=== PATIENT | female | born 1930 | race Caucasian/White ===

== ENCOUNTER 2017-03-13 12:12 | Emergency (ER) | payer OTHER ==
[~2017-03-13] VITALS: Ht 165.1 cm; Wt 95.5 kg
[~2017-03-13 12:12] MED LIST: AMLO5TAB2 PO; ASPI-630 PO; BUME0.5T PO; CARV6.252 PO; CLOP75TA PO; ERGO500027 PO; GLIP5TAB10 PO; HYDR-2867 PO; LEVO100T5 PO; LOSA25TA4 PO; PANT40TA5 PO; PARI2CAP PO; PRAV40TA2 PO; SUCR1TAB PO; VITA1TAB19 PO
[2017-03-13 12:30] LABS: BASO # 0.1 x10^3/uL (0.0-0.2); BASO % 1 % (0-3); EOS % 2 % (0-3); HEMOGLOBIN 10.5 g/dL (12.0-15.5); LYMPH # 0.6 x10^3/uL (1.0-4.8); LYMPH % 8 % (24-48); MEAN CORPUSCULAR HEMOGLOBIN 31 pg (25-35); MEAN CORPUSCULAR HGB CONC 33 g/dL (31-37); MEAN CORPUSCULAR VOLUME 94 fL (79-100); MONO % 9 % (0-9); NEUT % 81 % (31-73); PLATELET COUNT 249 x10^3/uL (140-400); RED BLOOD COUNT 3.42 x10^6/uL (3.50-5.40); RED CELL DISTRIBUTION WIDTH 15.9 % (11.5-14.5); WHITE BLOOD COUNT 7.2 x10^3/uL (4.0-11.0)
--- NOTE | 2017-03-13 12:40 | EKG ---
[facility] [address] [place] [address] Test Date: 2017-03-13 Test Time: 12:20:10 Pat Name: MINA ALDRIDGE Department: Room: Gender: F [employer]: : [id number] Requested By: JESSE HENRIQUEZ Order Number: [id number] Reading MD: Measurements Intervals [place] Rate: 83 P: MT: QRS: 15 QRSD: 78 T: 77 QT: 358 QTc: 421 Interpretive Statements ATRIAL FIBRILLATION QRS(T) CONTOUR ABNORMALITY CONSISTENT WITH ANTEROSEPTAL INFARCT AGE UNDETERMINED RI6.01 Unconfirmed report No previous ECG available for comparison
[2017-03-13 12:45] LABS: CALCIUM 8.9 mg/dL (8.5-10.1); CREATININE 2.9 mg/dL (0.6-1.0); GFR 15.3; INR 1.2 (0.8-1.1); POTASSIUM 3.9 mmol/L (3.5-5.1); PROTHROMBIN TIME PATIENT 14.2 SEC (11.7-14.0)
[2017-03-13 12:47] LABS: ALBUMIN 2.9 g/dL (3.4-5.0); DIRECT BILIRUBIN 0.3 mg/dL (0.0-0.2); TOTAL BILIRUBIN 0.6 mg/dL (0.2-1.0); TOTAL PROTEIN 6.7 g/dL (6.4-8.2)
[2017-03-13] MEDS ORDERED: ALTEPLASE IV SCH (13:00)
[2017-03-13] MEDS ORDERED: ALTEPLASE 0 MG IV ONE (13:00)
[2017-03-13] MEDS ORDERED: ALTEPLASE IV ONE (13:00)
[2017-03-13] MEDS ORDERED: LABETALOL 20 MG/4 ML DISP.SYRIN. IV PRN (13:00)
[2017-03-13] MEDS ORDERED: ALTEPLASE 0 MG IV SCH (13:00)
[2017-03-13] MEDS ORDERED: IV NORMAL SALINE 50ML 50 ML IV ONE ×2 (13:00)
--- NOTE | 2017-03-13 13:01 | RAD ---
CT head Indication: Altered mental status, found unresponsive Technique: CT head without IV contrast Comparison: None Findings: Limited study due to motion artifact especially in the vertex. Curvilinear high attenuation is seen along the inner table of the right parietal bone. Confluent low-attenuation is in the bilateral centrum semiovale and periventricular white matter. Mild diffuse cerebral atrophy with ex vacuo dilation of the ventricles. Atherosclerotic disease of the bilateral cavernous carotid arteries. No midline shift. No calvarial fractures. Visualized paranasal sinuses and mastoid air cells are clear. No focal loss of [employer]. Impression: Suboptimal evaluation due to motion artifact. 1. Confluent low-attenuation in the periarticular white matter and centrum semiovale most likely secondary to chronic microvascular ischemic disease. 2. Curvilinear area of high attenuation adjacent to inner table of the right parietal bone most likely secondary to motion artifact. However, extra-axial bleed not ruled out. Repeat CT head recommended. PQRS Compliance Statement: One or more of the following individualized dose reduction techniques were utilized for this examination: 1. Automated exposure control 2. Adjustment of the mA and/or kV according to patient size 3. Use of iterative reconstruction technique
[2017-03-13 13:06] LABS: BILIRUBIN,URINE NEGATIVE (NEG); GLUCOSE,URINE NEGATIVE (NEG); NITRITE,URINE NEGATIVE (NEG); PROTEIN,URINE 30 mg/dL (NEG-TRACE); UROBILINOGEN,URINE 0.2 mg/dL (0.2 mg/dL)
[2017-03-13 13:11] LABS: BACTERIA,URINE MANY /HPF (0-FEW); RBC,URINE 0 /HPF (0-2); SQUAMOUS EPITHELIAL CELL,UR FEW /LPF; WBC,URINE TNTC /HPF (0-4)
--- NOTE | 2017-03-13 13:15 | RAD ---
Portable chest, 03/13/2017: History: Altered mental status, renal failure The heart is enlarged. There is moderate calcific plaquing of the aorta. The pulmonary vascularity is at the upper limits of normal. No pulmonary infiltrates are seen. There is no evidence of pleural fluid. Moderate degenerative change is present at the left glenohumeral joint. IMPRESSION: 1. Cardiomegaly and aortic atherosclerosis. 2. No acute infiltrates.
[2017-03-13 13:29] LABS: % EOS 3 % (0-5); PLT ESTIMATE ADEQUATE (ADEQUATE)
[2017-03-13 13:59] VITALS: BP 152/102
--- NOTE | 2017-03-13 14:00 | RAD ---
CT of the head without contrast, 03/13/2017, 1:36 PM: History: Aphasia, altered mental status Comparison is made to study of earlier the same day. There is moderate cerebral atrophy. There are moderate bilateral deep white matter lucencies, most prominent in the left parietal region. These findings are unchanged since earlier in the day. The findings are most likely due to chronic ischemic change. The ventricles are within normal limits in size. There is no shift of the midline structures. There is no evidence of acute intracranial hemorrhage or mass effect. Several faint basal ganglia calcifications are present. There is mild cerebellar atrophy. There is considerable calcific plaquing of the distal internal carotid and vertebral arteries. No abnormal extra-axial fluid collection or mass is seen. A small density seen beneath the inner table the skull in the right parietal region on the previous study is no longer evident and was apparently an artifact. IMPRESSION: 1. Cerebral atrophy. 2. Moderate bilateral deep white matter lucencies compatible with chronic ischemic change. A superimposed recent infarct is clinically suspected, MR scanning would be a more sensitive method of further evaluation. 3. No evidence of recent intracranial hemorrhage. PQRS Compliance Statement: One or more of the following individualized dose reduction techniques were utilized for this examination: 1. Automated exposure control 2. Adjustment of the mA and/or kV according to patient size 3. Use of iterative reconstruction technique
--- NOTE | 2017-03-13 14:53 | PHYS DOC ---
Past Medical History Past Medical History: A-Fib, Anemia, Diabetes-Type II, GERD, Hypertension, Hypothyroid, VA, Other Additional Past Medical Histor: "KIDNEY PROBLEMS" Past Surgical History: Hysterectomy, Knee Replacement Additional Information: UNKNOWN Alcohol Use: None Drug Use: Other Social History Narrative: UNKNOWN Adult General Chief Complaint Chief Complaint: ALTERED MENTAL STATUS HPI HPI 86-year-old female presenting to the emergency department today with sudden change in her mental status at approximate 11:00 today. Initial reports by EMS state that she was sitting at the dining room table with her family saw her suddenly slump over at around 11 AM. They report that she did have some localizing signs of weakness on her right side. Otherwise the patient just has decreased mental status. Onset today. Location brain. Duration constant. No alleviating factors. Later more history was able to be obtained by the family. Family states the patient recently was taken off her warfarin for atrial fibrillation about 3 weeks ago. This was all performed at [facility]. Review of systems is negative for abdominal pain chest pain shortness of breath fevers chills cough. All other review of systems is negative unless otherwise noted in history of present illness. ED course: 86-year-old female presenting to the emergency department today with sudden change in mental status. Code stroke initiated. Head CT came unable to fully exclude intracranial hemorrhage however after talking with radiologist he believes that there is no intracranial hemorrhage and that this is motion artifact. Otherwise blood work ordered. NIH stroke scale calculated to be 31. Vital signs show the patient initially to be afebrile with a normal pulse. Patient was on nonrebreather by EMS at 15 L saturating 100%. Initial blood pressure elevated in the 240s. On initial examination the patient opens eyes spontaneously and is maintaining secretions and airway without difficulty. Patient is clearly aphasic. Patient does not follow commands patient withdraws to pain on the left upper extremity but not the right. Patient is spontaneously moving the left upper extremity but not the right. Patient does not follow commands so facial asymmetry is hard to note. Pupils are equal round and reactive. Extraocular movements are difficult to ascertain because patient does not follow commands but there is no obvious deviation. Sensation intact on the left upper extremity and the right lower and left lower extremity. Patient makes nonsensical speech to painful stimuli. GCS calculated by myself shows a GCS of 11 for spontaneous E, V incomprehensible, Motor withdrawals from pain 5. [id number]. Labs came back which showed elevated creatinine which made angiography relatively contraindicated. I discussed the case with Dr. Alexis 2 times during the patient's care and collectively we decided to administer IV TPA. I communicated to him the patient's presenting signs and symptoms and all available blood work and imaging. I then communicated with [facility] for possible mechanical thrombectomy given the patient's large MCA stroke. I then coordinated transfer for the patient to [facility]. Accepting doctor Dr. Ramos. Repeat head CT confirms no intracranial bleed. IV TPA started. Patient was then transferred for further evaluation workup and care. Review of Systems Review of Systems SEE ABOVE. Current Medications Current Medications Current Medications Medications (Trade) Dose Ordered Sig/Maik Start Time Stop Time Status Last Admin Dose Admin Alteplase, Recombinant 0 ml @ 0 mls/hr Q1H 03/13/17 13:00 03/13/17 13:01 UNV Labetalol HCl (Normodyne) 10 mg PRN Q10MIN PRN 03/13/17 13:00 Nicardipine HCl 50 mg/Sodium Chloride 270 ml @ 27 mls/hr CONT PRN PRN 03/13/17 13:00 Sodium Chloride 50 ml @ 0 mls/hr 1X ONCE 03/13/17 13:00 03/13/17 13:01 UNV Allergies Allergies Allergies Coded Allergies Type Severity Reaction Last Updated Verified Sulfa (Sulfonamide Antibiotics) Allergy Intermediate Rash 03/21/14 No Physical Exam Physical Exam SEE ABOVE Constitutional: Well developed, well nourished. HENT: Normocephalic, atraumatic, bilateral external ears normal, oropharynx moist, no oral exudates, nose normal. [] Eyes: PERRLA, conjunctiva normal, no discharge. [] Neck: Normal range of motion, no tenderness, supple, no stridor. [] Cardiovascular:Heart rate regular rhythm, no murmur [] Lungs & Thorax: Bilateral breath sounds clear to auscultation [] Abdomen: Bowel sounds normal, soft, no tenderness, no masses, no pulsatile masses. [] Skin: Warm, dry, no erythema, no rash. [] Back: No tenderness, no CVA tenderness. [] Extremities: No tenderness, no cyanosis, no clubbing, ROM intact, no edema. [] Neurologic: Mental status: aphasic, somnolent, see above Cranial nerves: She does not follow commands so I'm having difficulty time getting a good cranial nerve exam. DTRs: 2+ Sensation: Difficult to assess as the patient does not speak. Withdraw to pain on the left more than the right. Strength: Flaccid in the right upper extremity. Spontaneous movements of the left upper and left lower extremity. Strength grading unable to be obtained because the patient's current medical condition. Psychologic: Affect normal, judgement normal, mood normal. [] Current Patient Data Vital Signs Vital Signs Date Time Temp Pulse Resp B/P (MAP) Pulse Ox O2 Delivery O2 Flow Rate FiO2 03/13/17 13:59 76 22 99 03/13/17 12:12 98.0 236/96 (142) NonRebreather Mask 15.0 98.0 Lab Values Laboratory Tests Test 03/13/17 12:20 03/13/17 12:52 White Blood Count 7.2 x10^3/uL (4.0-11.0) Red Blood Count 3.42 x10^6/uL (3.50-5.40) L Hemoglobin 10.5 g/dL (12.0-15.5) L Hematocrit 32.0 % (36.0-47.0) L Mean Corpuscular Volume 94 fL (79-100) Mean Corpuscular Hemoglobin 31 pg (25-35) Mean Corpuscular Hemoglobin Concent 33 g/dL (31-37) Red Cell Distribution Width 15.9 % (11.5-14.5) H Platelet Count 249 x10^3/uL (140-400) Neutrophils (%) (Auto) 81 % (31-73) H Lymphocytes (%) (Auto) 8 % (24-48) L Monocytes (%) (Auto) 9 % (0-9) Eosinophils (%) (Auto) 2 % (0-3) Basophils (%) (Auto) 1 % (0-3) Neutrophils # (Auto) 5.8 x10^3uL (1.8-7.7) Lymphocytes # (Auto) 0.6 x10^3/uL (1.0-4.8) L Monocytes # (Auto) 0.6 x10^3/uL (0.0-1.1) Eosinophils # (Auto) 0.1 x10^3/uL (0.0-0.7) Basophils # (Auto) 0.1 x10^3/uL (0.0-0.2) Segmented Neutrophils % 85 % (35-66) H Band Neutrophils % 1 % (0-9) Lymphocytes % 6 % (24-48) L Monocytes % 5 % (0-10) Eosinophils % 3 % (0-5) Platelet Estimate Adequate (ADEQUATE) Prothrombin Time 14.2 SEC (11.7-14.0) H Prothrombin Time INR 1.2 (0.8-1.1) H PTT 32 SEC (24-38) Sodium Level 138 mmol/L (136-145) Potassium Level 3.9 mmol/L (3.5-5.1) Chloride Level 99 mmol/L (98-107) Carbon Dioxide Level 27 mmol/L (21-32) Anion Gap 12 (6-14) Blood Urea Nitrogen 79 mg/dL (7-20) H Creatinine 2.9 mg/dL (0.6-1.0) H Estimated GFR (Cockcroft-Gault) 15.3 Glucose Level 171 mg/dL (70-99) H Glucose (Fingerstick) 155 mg/dL (70-99) H Lactic Acid Level 1.3 mmol/L (0.4-2.0) Calcium Level 8.9 mg/dL (8.5-10.1) Total Bilirubin 0.6 mg/dL (0.2-1.0) Direct Bilirubin 0.3 mg/dL (0.0-0.2) H Aspartate Amino Transferase (AST) 15 U/L (15-37) Alanine Aminotransferase (ALT) 13 U/L (14-59) L Alkaline Phosphatase 105 U/L (46-116) Troponin I Quantitative < 0.017 ng/mL (0.000-0.055) PS-Pxd-U-Type Natriuretic Peptide 72415 pg/mL (0-449) H Total Protein 6.7 g/dL (6.4-8.2) Albumin 2.9 g/dL (3.4-5.0) L Lipase 132 U/L (73-393) Urine Collection Type Unknown Urine Color Yellow Urine Clarity Cloudy Urine pH 5.0 Urine Specific Cable 1.020 Urine Protein 30 mg/dL (NEG-TRACE) Urine Glucose (UA) Negative mg/dL (NEG) Urine Ketones (Stick) Negative mg/dL (NEG) Urine Blood Negative (NEG) Urine Nitrite Negative (NEG) Urine Bilirubin Negative (NEG) Urine Urobilinogen Dipstick 0.2 mg/dL (0.2 mg/dL) Urine Leukocyte Esterase Large (NEG) Urine RBC 0 /HPF (0-2) Urine WBC Tntc /HPF (0-4) Urine Squamous Epithelial Cells Few /LPF Urine Bacteria Many /HPF (0-FEW) Laboratory Tests 03/13/17 12:20 Laboratory Tests 03/13/17 12:20 EKG EKG [] Radiology/Procedures Radiology/Procedures [] Course & Med Decision Making Course & Med Decision Making Pertinent Labs and Imaging studies reviewed. (See chart for details) [] Dragon Disclaimer Dragon Disclaimer This electronic medical record was generated, in whole or in part, using a voice recognition dictation system. Departure Departure Impression: Primary Impression: Stroke-like symptoms Additional Impressions: Aphasia Focal neurological deficit Disposition: 02 TRANSFER [facility] ([facility]) Condition: GUARDED Referrals: WALDO DIAZ (PCP) Critical Care Time Critical care time was [60] minutes exclusive of procedures. Time was spent evaluating the patient, deciding whether to give TPA, discussing with radiologist, neurologist, reevaluating the patient, ordering the administration of medications and transferring the patient. Problem Qualifiers JESSE HENRIQUEZ MD Mar 13, 2017 14:53
== END 2017-03-13 14:10 | disposition short-term general hospital (02) ==
LOC: ER 12:12
DX: R47.01 Aphasia (principal); R29.818 Other symptoms and signs involving the nervous system; K21.9 Gastro-esophageal reflux disease without esophagitis; I48.91 Unspecified atrial fibrillation; I10 Essential (primary) hypertension; E11.9 Type 2 diabetes mellitus without complications; E03.9 Hypothyroidism, unspecified; I25.2 Old myocardial infarction; Z79.01 Long term (current) use of anticoagulants; Z88.2 Allergy status to sulfonamides
CPT/HCPCS: 36415; 37195; 51702; 70450; 71010; 80048; 80076; 81001; 82962; 83605; 83690; 83880; 84484; 85007; 85025; 85610; 85730; 87086; 87186; 93005; 99291; J2997; 99285-25